=== PATIENT | male | born 1995 | race Caucasian/White ===

== ENCOUNTER 2019-07-03 15:15 | Inpatient (IN) | payer MEDICAID ==
[~2019-07-03] VITALS: Ht 175.3 cm; Wt 68.0 kg
[2019-07-03] MEDS ORDERED: LORazepam 2 MG/ML VIAL ONE (17:13)
[2019-07-03] MEDS ORDERED: DiphenhydrAMINE HCL 50 MG/ML VIAL ONE (17:13)
[2019-07-03] MEDS ORDERED: HALOPERIDOL LACTATE 5 MG/ML VIAL ONE (17:13)
[2019-07-03] MEDS ORDERED: DiphenhydrAMINE HCL 50 MG/ML VIAL IM ONE (17:15)
[2019-07-03] MEDS ORDERED: LORazepam 2 MG/ML VIAL IM ONE (17:15)
[2019-07-03] MEDS ORDERED: HALOPERIDOL LACTATE 5 MG/ML VIAL IM ONE (17:15)
[2019-07-03 17:50] LABS: BASOPHILS % (AUTO) 0.2 % (0.0-2.0); EOSINOPHILS % (AUTO) 0 % (1.0-6.0); HEMATOCRIT 42.1 % (41-53); HEMOGLOBIN 14.5 g/dL (13.5-17.5); LYMPHOCYTES # (AUTO) 1.4 K/uL (1.0-4.8); LYMPHOCYTES % (AUTO) 15.4 % (22.0-44.0); MEAN CORPUSCULAR HEMOGLOBIN 31.5 pg (26.0-34.0); MEAN CORPUSCULAR HGB CONC 34.4 G/dL (31.0-37.0); MEAN CORPUSCULAR VOLUME 92 fL (80-100); MONOCYTES # (AUTO) 0.7 K/uL (0.1-1.0); MONOCYTES % (AUTO) 7.4 % (2.0-9.0); NEUTROPHILS # (AUTO) 7.1 K/uL (1.8-7.7); PLATELET COUNT (AUTO) 319 K/uL (150-450); RED CELL DISTRIBUTION WIDTH 13.6 % (11.5-14.5)
[2019-07-03 17:58] LABS: ANION GAP 12 mmol/L (8-16); CALCIUM, TOTAL 9.2 mg/dL (8.8-10.5); CARBON DIOXIDE 25 mmol/L (22-29); CHLORIDE 101 mmol/L (98-107); CREATININE 0.86 mg/dL (0.60-1.30); GLOMERULAR FILTR. RATE CALC > 60 mL/min (>60); GLUCOSE,RANDOM 91 mg/dL (70-110); POTASSIUM 3.3 mmol/L (3.5-5.1); SODIUM SERUM 138 mmol/L (136-145); UREA NITROGEN, BLOOD 16 mg/dL (7-18)
[2019-07-03 18:23] LABS: ALANINE AMINOTRANSFERASE 24 U/L (12-78); ALBUMIN 4.2 g/dL (3.4-5.0); ALKALINE PHOSPHATASE 78 U/L (46-116); ASPARTATE AMINOTRANSFERASE 17 U/L (15-37); BILIRUBIN,TOTAL 0.8 mg/dL (0.1-1.0); CREATINE KINASE, TOTAL ONLY 279 U/L (39-308); TOTAL PROTEIN, SERUM 7.6 g/dL (6.4-8.2)
[2019-07-03 21:14] LABS: APPEARANCE,URINE CLEAR (CLEAR); GLUCOSE, URINE (UA) NEGATIVE (NEGATIVE); KETONES,URINE 15 mg/dL (NEGATIVE); LEUKOCYTE ESTERASE ,URINE NEGATIVE (NEGATIVE); NITRATE,URINE NEGATIVE (NEGATIVE); OCCULT BLOOD,URINE NEGATIVE (NEGATIVE); PH,URINE 5.5 (5.0-8.0); PROTEIN,URINE POS 1+ (NEGATIVE)
[2019-07-03 21:21] LABS: AMPHET/METH SCREEN,URINE NEGATIVE (NEGATIVE); BARBITURATE SCREEN, URINE NEGATIVE (NEGATIVE); BENZODIAZEPINES SCREEN,URINE NEGATIVE (NEGATIVE); CANNABINOID SCREEN,URINE NEGATIVE (NEGATIVE); COCAINE SCREEN,URINE NEGATIVE (NEGATIVE); METHADONE SCREEN, URINE NEGATIVE (NEGATIVE); OPIATE SCREEN,URINE NEGATIVE (NEGATIVE); PHENCYCLIDINE SCREEN,URINE NEGATIVE (NEGATIVE)
[2019-07-03 21:42] LABS: BILIRUBIN,URINE PRELIM. POSITIVE (NEGATIVE)
[2019-07-03] MEDS ORDERED: HALOPERIDOL 5 MG TABLET PO PRN (23:30)
[2019-07-03] MEDS ORDERED: ZOLPIDEM TARTRATE 10 MG TABLET PO PRN (23:30)
[2019-07-03] MEDS ORDERED: LORazepam 2 MG TABLET PO PRN (23:30)
[2019-07-04] MEDS ORDERED: ACETAMINOPHEN 325 MG TABLET PO PRN
[2019-07-04] MEDS ORDERED: MAGNESIUM HYDROXIDE SUSPENSION 30 ML UDCUP PO PRN
[2019-07-04] MEDS ORDERED: DOCUSATE SODIUM 100 MG CAPSULE PO PRN
[2019-07-04] MEDS ORDERED: MAG HYDROX/AL HYDROX/SIMETH ES 30 ML SUSPENSION UDCUP PO PRN
[2019-07-04] MEDS ORDERED: ALBUTEROL SULFATE HFA 90 MCG/PUFF 8 GM INHALER IH PRN
[2019-07-04] MEDS ORDERED: PETROLATUM,WHITE 28 GM JELLY TP PRN
[2019-07-04] MEDS ORDERED: ONDANSETRON HCL 4 MG TABLET PO PRN
[2019-07-04] MEDS ORDERED: GuaiFENesin/D-METHORPHAN [SUGAR-FREE] 200-20MG/10 ML SYRUP UDCUP PO PRN
[2019-07-04] MEDS ORDERED: CloNIDine HCL 0.1 MG TABLET PO PRN
[2019-07-04] MEDS ORDERED: NICOTINE 14 MG/24 HOUR PATCH TD PRN
[2019-07-04] MEDS ORDERED: LOPERAMIDE HCL 2 MG CAPSULE PO PRN
[2019-07-04 10:45] VITALS: BP 117/79
[2019-07-04] MEDS ORDERED: INFLUENZA VIRUS VACCINE QVS 2019-20 (3YR+)/PF 60 MCG/0.5 ML SYRINGE IM ONE (12:30)
[2019-07-04 16:37] VITALS: BP 110/71
[2019-07-04] MEDS: RisperiDONE 0.5 MG TABLET PO SCH ×2 (17:00→20:01)
[2019-07-05 04:52] VITALS: BP 123/71
[2019-07-05 08:08] VITALS: BP 100/60
[2019-07-05] MEDS: RisperiDONE 0.5 MG TABLET PO SCH ×2 (09:02→17:10)
[2019-07-05 16:08] VITALS: BP 114/72
[2019-07-05] MEDS: IBUPROFEN 400 MG TABLET PO PRN (17:23)
[2019-07-05] MEDS: AMOX TR/POT CLAV 500 MG/125 MG TABLET PO SCH ×2 (20:05→20:18)
[2019-07-06] MEDS: IBUPROFEN 400 MG TABLET PO PRN (01:55)
[2019-07-06 02:05] VITALS: BP 139/74
[2019-07-06 08:00] VITALS: BP 148/83
[2019-07-06] MEDS ORDERED: AMOX TR/POT CLAV 500 MG/125 MG TABLET PO SCH (09:14)
[2019-07-06] MEDS: RisperiDONE 0.5 MG TABLET PO SCH (09:34)
[2019-07-06] MEDS ORDERED: RISP.5 PO (11:58)
== END 2019-07-06 14:02 | disposition home or self-care (01) | DRG 751 ==
LOC: EMS 15:16 → UNDOADMIN 07-04 08:43 → B3A 07-04 08:43
PROVIDERS: ADMIT Psychiatry & Neurology Psychiatry; ATTEND Psychiatry & Neurology Psychiatry
DX: F29 Unspecified psychosis not due to a substance or known physiological condition (principal); G93.40 Encephalopathy, unspecified; Z78.1 Physical restraint status; E87.6 Hypokalemia; F19.10 Other psychoactive substance abuse, uncomplicated; F41.9 Anxiety disorder, unspecified; Z81.8 Family history of other mental and behavioral disorders; Z28.21 Immunization not carried out because of patient refusal
CPT/HCPCS: 51701; 70450; 93005; 96372; 99291; G0480; J1200; J1630; J2060

== ENCOUNTER 2019-10-26 07:25 | Emergency (ER) | payer MEDICAID ==
[~2019-10-26] VITALS: Ht 175.3 cm; Wt 72.7 kg
[~2019-10-26 07:25] MED LIST: RISP.5 PO
[2019-10-26 07:34] VITALS: BP 126/74
== END 2019-10-26 08:14 | disposition home or self-care (01) ==
LOC: EMS 07:25
DX: K08.89 Other specified disorders of teeth and supporting structures (principal); F17.210 Nicotine dependence, cigarettes, uncomplicated; F19.90 Other psychoactive substance use, unspecified, uncomplicated
CPT/HCPCS: 99406